=== PATIENT | female | born 1985 | race Caucasian/White ===

== ENCOUNTER 2017-10-15 12:32 | Observation (INO) ==
[2017-10-15 12:21] LABS: Basophils % 0.1 %; Bilirubin,Urine Negative (Negative); Blood,Urine Negative (Negative); Color,Urine Yellow (Yellow); Eosinophils # 0.1 K/mcL (0.0-0.6); Eosinophils % 1.3 %; Glucose,Urine (UA) Normal (Normal); Hemoglobin 10.9 g/dL (11.5-15.4); Immature Granulocytes % 1.1 % (0-4); Ketones,Urine Negative (Negative); Leukocyte Esterase,Urine Moderate (Negative); Lymphocytes # 1.3 K/mcL (0.6-4.6); Lymphocytes % 14.2 %; Mean Corpuscular Volume 90.9 fL (83.0-100.0); Mean Platelet Volume 11.1 fL (9.4-12.4); Monocytes # 0.8 K/mcL (0.0-1.3); Monocytes % 8.5 %; Neutrophils # 6.8 K/mcL (1.6-8.9); Nitrite,Urine Negative (Negative); Platelet Count 170 K/mcL (140-400); Protein,Urine Negative (Neg-Trace); Red Blood Count 3.63 M/mcL (3.82-4.97); Red Cell Distribution Width 15.3 % (11.5-14.5); Segmented Neutrophils % 74.8 %; Urobilinogen,Urine Normal (Normal)
[2017-10-15 12:31] LABS: Bacteria,Urine Moderate per hpf (None-Few); Hyaline Casts,Urine None Seen per lpf (None-Few); Squamous Epithelial Cell,Urine Many per lpf (None-Few); WBC,Urine 15-30 per hpf (0-3)
[2017-10-15 12:34] LABS: Clarity,Urine Clear (Clear)
[2017-10-15 12:41] LABS: Calcium Oxalate Crystals,Urine Present; RBC,Urine 0-3 per hpf (0-3)
[2017-10-15 12:52] LABS: Amphetamine Screen,Urine Negative ng/mL (Cutoff=1000); Barbiturate Screen,Urine Negative ng/mL (Cutoff=200); Benzodiazepines Screen,Urine Negative ng/mL (Cutoff=200); Cannabinoid Screen,Urine Negative ng/mL (Cutoff = 50); Cocaine Screen,Urine Negative ng/mL (Cutoff= 300); Opiate Screen,Urine Negative ng/mL (Cutoff=300); Phencyclidine Screen,Urine Negative ng/mL (Cutoff=25)
[2017-10-15 12:53] LABS: Alanine Aminotransferase 14 Units/L (7-52); Aspartate Amino Transferase 17 Units/L (13-39); BUN/Creatinine Ratio 15 (6-26); Blood Urea Nitrogen 8 mg/dL (6-20); Lactate Dehydrogenase 149 Units/L (140-271); eGFR For Non-African Americans > 60 (> 60)
--- NOTE | 2017-10-15 13:47 | OB/GYN Progress Note ---
Date of Encounter: 10/15/17 Time of Encounter: 13:44 - Assessment and Plan (1) 32 weeks gestation of Current Visit: Yes Status: Acute (2) Elevated blood pressure affecting in third trimester, antepartum Current Visit: Yes Status: Acute PIH labs negative, normotensive in labor and delivery. Discharged home with labor, PIH and when to return to triage precautions. Patient verbalizes understanding Subjective - Subjective Interval history: 32+2 presents to triage with complaints of "not feeling well". Patient states she has has felt off the last couple days. Took her blood pressure at work and it was 130s over 90s. To triage for PIH evaluation. Reports good movement, denies vaginal bleeding or leaking of fluid, headache, visual changes, right upper quadrant pain Antepartum ROS: movement normal, no loss of fluid, no vaginal bleeding, no contractions Objective - Vital Signs Vital Signs: Intake and Output 10/14/17 10/15/17 10/15/17 23:59 07:59 15:59 Other: Weight 96.7 kg Patient Weight 10/15/17 23:59 Weight 96.7 kg - Exam FHR: auscultation normal FHR comments: Baseline 135 Abdomen: Present: normal appearance, soft, gravid - Labs Labs: Abnormal lab results RBC 3.63 M/mcL (3.82-4.97) L 10/15/17 11:43 Hgb 10.9 g/dL (11.5-15.4) L 10/15/17 11:43 Hct 33.0 % (35.3-44.9) L 10/15/17 11:43 RDW 15.3 % (11.5-14.5) H 10/15/17 11:43 Creatinine 0.55 mg/dL (0.60-1.20) L 10/15/17 11:43 Ur Leukocyte Esterase Moderate (Negative) H 10/15/17 11:43 Urine Microscopic WBC 15-30 per hpf (0-3) H 10/15/17 11:43 Ur Squamous Epith Cells Many per lpf (None-Few) H 10/15/17 11:43 Urine Bacteria Moderate per hpf (None-Few) H 10/15/17 11:43 Ur Culture Indicated? NO. (NO) A 10/15/17 11:43
[2017-10-16 08:25] LABS: Protein/Creatinine Ratio,Urine 0.2 mg/mg (0.00-0.20)
== END 2017-10-15 14:00 | disposition home or self-care (01) ==
LOC: 1NENULAB
PROVIDERS: ADMIT Advanced Practice Midwife; ATTEND Advanced Practice Midwife

== ENCOUNTER 2017-11-25 05:13 | Inpatient (IN) ==
--- NOTE | 2017-11-24 23:47 | OB/GYN History & Physical ---
Date of Encounter: 11/24/17 Time of Encounter: 23:40 Assessment and Plan (1) 38 weeks gestation of Current visit: Yes Status: Acute Admit for repeat GBS negative Patient desires repeat (2) PROM (premature rupture of membranes) Current visit: Yes Status: Acute Qualifiers: PROM onset of labor timing: unspecified duration between rupture of membranes and onset of labor PROM gestational age: full term Qualified Code( s): O42.92 - Full-term premature rupture of membranes, unspecified as to length of time between rupture and onset of labor (3) History of pre-eclampsia in prior , currently Current visit: Yes Status: Acute (4) Gestational hypertension Current visit: Yes Status: Acute Qualifiers: Trimester: third trimester Qualified Code(s): O13.3 - Gestational [ -induced] hypertension without significant proteinuria, third trimester History of Present Illness Chief complaint: Leaking fluid HPI: Ms. Hendrickson is a 32 year old at 38 weeks 0 days that presents to labor and delivery triage with c/o vaginal leaking of fluid that began around 2200. She denies intercourse in the past 24-48 hours. She states she has had one previous after attempting to push. She is requesting a repeat . She has seen Dr Zarate for this . She does have a history of gestational hypertension that has been controlled with oral medication, a septate uterus, and a history of pre-eclampsia with a previous . Labs: GBS negative Blood type O+ Hep B negative HIV NR RPR neg Varicella immune Rubella immune Past Med Surg Social Fam HX - Past Medical History Medical history: non-contributory Psychiatric history: depression - Past Surgical History Surgical History: non-contributory, other Additional surgical history: T&A at appx 2 years of age - Social History Smoking Status: Never smoker Smokeless Tobacco Status: No Alcohol use: none Drug use: none - Family History Mother Hx Family Cardiac Disorders: Yes (high blood pressure) Hx Family Respiratory Disorders: No Hx Family Cancer: No Hx Family GI Disorders: No Hx Family Genitourinary Disorders: No Hx Family Endocrine Disorder: No Hx Family Musculoskeletal Disorders: No Hx Family Neuromuscular Disorders: No Hx Family Neurologic Disorders: No Hx Family HEENT Disorders: No Hx Family Autoimmune Disorders: No Hx Family Reproductive Disorders: No Hx Family Psychosocial Disorders: No Hx Family Medical Disorders: No Obstetrical History - Pregnancies : 3 Para: 1 Term: 1 : 0 Ab's: 1 Livin Medications and Allergies Aspirin [Lo-Dose Aspirin EC] 81 mg PO DAILY 06/11/17 [History] Zoloft 50 mg PO DAILY 06/11/17 [History] Ascorbic Acid [Vitamin C] 1,000 mg PO BID 10/15/17 [History] Ferrous Sulfate [Iron] 325 mg PO BID 10/15/17 [History] Vit Calc,Iron,Folic [ Vitamins] 1 each PO DAILY 10/15/17 [ History] 3 Allergy/AdvReac Type Severity Reaction Status Date / Time Amoxicillin Allergy Hives Verified 06/11/17 10:03 Exam - Constitutional Constitutional: well developed, well nourished, no acute distress, average body habitus - HEENT HEENT: Normocephaly, Mucus Membranes Moist - Lungs Respiratory exam: CTAB - Cardiovascular Cardiovascular exam: RRR, +S1, +S2 - Abdomen Abdomen: Present: bowel sounds normal, gravid, non tender - Extremities Extremities exam: normal capillary refill, normal inspection, radial pulses palpable and symmetrical - Vulva Vulva: bilateral: normal - Vagina Vagina: Present: normal moisture, discharge (SSE - white curd-like thick discharge adhered to vaginal fleming) - Cervix Dilation: 2 Effacement: 70 Station: -2 - Comments Comments: SSE - Pooling positive of clear fluid in posterior fornix, fluid observed coming from cervix, nitrazine equivocal Results All other labs normal. - VTE Reasons for not Prescribing Prophylaxis: Treatment not Indicated - Low risk for VTE
--- NOTE | 2017-11-25 00:26 | Anesthesia Evaluation PreOp ---
Date of Encounter: 11/25/17 Time of Encounter: 00:24 - Past History Planned Operation: Repeat Cardiac History: HTN (gestational; uncontrolled at time of assessment) Pulmonary History: Denies Any Significant HX [employer] PERSON History: Denies Any Significant HX Other Medical History: Denies Any Significant HX Anesthesia History: No Prior Anesthetic Complications (denies personal h/o of GA & NA complications; denies family h/o GA complications) : Yes Alcohol Use: none Drug use: none Medications and Allergies Aspirin [Lo-Dose Aspirin EC] 81 mg PO DAILY 06/11/17 [History] Zoloft 50 mg PO DAILY 06/11/17 [History] Ascorbic Acid [Vitamin C] 1,000 mg PO BID 10/15/17 [History] Ferrous Sulfate [Iron] 325 mg PO BID 10/15/17 [History] Vit Calc,Iron,Folic [ Vitamins] 1 each PO DAILY 10/15/17 [ History] 3 Allergy/AdvReac Type Severity Reaction Status Date / Time Amoxicillin Allergy Hives Verified 06/11/17 10:03 - Meds/Allergy Pre-op Review Medications Reviewed: Yes Allergies Reviewed: Yes Beta Blockers on Current Med List: No Anesthesia Exam 190/108, HR 68, RR 20 O2 Sat Height 1.63 m Height 1.63 m Weight 99.79 kg Weight 99.79 kg Weight 220 kg NPO (# of Hours): solids > 5hrs Pain Scale: 5 Pain Scale Used: Evaristo (Faces) - HEENT Pupil (Motor): Pupils equal Mallampati: II Teeth: Normal Oral Opening: Greater than 3 - [employer]IP [employer]LECT[employer] PERSON LOC: Oriented [employer]IP [employer]LECT[employer] PERSON Motor: Normal RUE, Normal LUE, Normal RLE, Normal LLE, Normal Face [employer]ERSON Sensory: Normal: RUE, LUE, RLE, LLE, Face - Cardiac Rhythm: Regular Murmur: None - Pulmonary Breath Sounds: bilateral Clear Respiratory Effort: Symmetrical Anesthesia Assess/Plan ASA Score: 2 Modified Parnell Scale for Level of Consciousness: Cooperative, oriented, and tranquil Anesthetic Plan: Regional Autologous Blood: No Monitoring Plan: Standard Monitors Recovery Plan: PACU
[2017-11-25 00:37] LABS: Basophils % 0.4 %; Eosinophils # 0.2 K/mcL (0.0-0.6); Eosinophils % 2.1 %; Hematocrit 35.6 % (35.3-44.9); Hemoglobin 11.9 g/dL (11.5-15.4); Immature Granulocytes % 1.6 % (0-4); Lymphocytes # 1.6 K/mcL (0.6-4.6); Lymphocytes % 15.6 %; Mean Corpuscular HGB Conc 33.4 g/dL (31.6-35.5); Mean Corpuscular Hemoglobin 30.4 pg (28.0-33.3); Mean Platelet Volume 12.7 fL (9.4-12.4); Monocytes % 9.6 %; Neutrophils # 7.3 K/mcL (1.6-8.9); Nucleated Red Blood Cells 0.4 /100 WBC (0); Platelet Count 123 K/mcL (140-400); Red Blood Count 3.91 M/mcL (3.82-4.97); Red Cell Distribution Width 14.8 % (11.5-14.5); Segmented Neutrophils % 70.7 %
[2017-11-25 00:48] LABS: Alanine Aminotransferase 21 Units/L (7-52); Aspartate Amino Transferase 24 Units/L (13-39); BUN/Creatinine Ratio 10 (6-26); Blood Urea Nitrogen 8 mg/dL (6-20); Lactate Dehydrogenase 185 Units/L (140-271); Uric Acid 6.1 mg/dL (2.3-7.6); eGFR For Non-African Americans > 60 (> 60)
--- NOTE | 2017-11-25 00:57 | OB/GYN Procedure Note ---
Section - Date of procedure: 11/25/17 Preop diagnosis: other (IUP at 38 1/7 wks, previous section x 1, spontaneous rupture membranes, gestational hypertension) Post-op diagnosis: same Procedure: repeat low transverse Surgeon: Zoran Villar Quantitated Blood Loss: 600 Was there an office support assistant present: No Anesthesiologist: Yuli Han Plant Technician: Carrillo Tucker Anesthesia Type: Spinal section complications: none Disposition: L&D Recovery Room Specimens: Placenta - (s) A Delivery Date: 11/25/17 Delivery Time: 01:42 Presentation: vertex Position: JEREMIAH Route of delivery: other (section) Gender: Male Viability: Viable Pounds: 9 Ounces: 10 Gram Weight: 4.375 kg at 1 minute: 8 at 5 minutes: 9 Shoulder Dystocia: not encountered Specimens collected: cord blood Placenta: spontaneous Cord: 3 umbilical vessels - Narrative Narrative: Patient is a 32-year-old 3 para 1011 at 38 and one sevenths weeks who presented with complaint of spontaneous rupture membranes approximately 10 PM patient states that she started having cramping and had spontaneous rupture of membranes at the same time upon arrival to labor and delivery patient was noted to be mallory was grossly ruptured and uncomfortable patient is a history of hypertension was on labetalol 100 mg twice a day to take her dose around 11: 00 if she is having some pain blood pressures are slightly elevated at this time she has a history of preeclampsia with one of the pregnancies. Because patient is a previous section and ruptured she does not want to do a trial of labor so section was offered. Procedure: Patient was taken to the operating room where spinal anesthesia was found be adequate. She was placed in the dorsal supine position prepped and draped in usual fashion. Timeout was then obtained. A Pfannenstiel incision was made with a scalpel and carried down to the underlying tissue to the fascia was identified. The fascia was nicked in midline extended laterally with Rangel scissors. The superior and inferior edges of the fascia grasped tented up and dissected off the rectus muscles. Rectus muscles were in midline parietal peritoneum was then identified tented up and entered sharply. This was extended superiorly and inferiorly with Metzenbaum scissors. Patient was noted to have omental adhesions to the peritoneum and bladder reflection this was taken down with sharp dissection. Bladder blade was inserted the vesicouterine peritoneum was identified tented up and entered sharply. This is extended laterally the bladder flap was created digitally. The lower uterine segment was incised with a scalpel and extended laterally with digital manipulation. Infant's head was brought out through the incision followed by the baby's cord was clamped and cut was handed off to the waiting pediatric team. Cord blood was then collected and placenta was delivered spontaneously 3 vessel cord and the uterus was exteriorized and cleaned of all clots and debris. The lower uterine segment was then closed using an 0 Vicryl in a running stitch by a 2 layer closure. Good hemostasis was noted uterus was returned to the abdomen the gutters were cleaned of all clots and debis then copiously irrigated with no active bleeding. The fascia was then closed using a #1 stratafix in a running stitch and the skin was closed using a 4-0 Vicryl in a subcuticular manner. All needles lap sponge counts were correct 3 a elsy dressing was then applied to the end of the case. She did receive preoperative antibiotics.
--- NOTE | 2017-11-25 01:40 | Anesthesia Procedures ---
Date of Encounter: 11/25/17 Time of Encounter: 01:12 Procedures: Anesthesia - Epidural/Spinal Patient ID/Chart reviewed: Yes Patient examined: Yes OB Eval: Gestational age: 38 weeks 1 day OB Eval: : 3 OB Eval: Hx Para: 1 OB Eval: Contractions: Non-stressed pattern Consent Obtained: Yes Supplemental Oxygen: None/Room Air Site Prep: Aseptic Technique, Sterile prep and drape, Povidone-Iodine 1% Patient position: upright Local Anesthetic: Lidocaine 1% Amount of Local Anesthetic used: 3 Interspace Used: L3-L4 Blood: No CSF: Yes Paresthesia: No Spinal Needle Gauge: 25 (3.5" pencan needle) Spinal Dose: see anesthesia record Procedure: successful on 1st pass; patient tolerated procedure well; VSS Vitals + FHT's: see anesthesia record
--- NOTE | 2017-11-25 02:48 | Anesthesia Evaluation Post Op ---
Date of Encounter: 11/25/17 Time of Encounter: 02:48 - Vital Signs Vital Signs: 114/91, HR 84, SpO2 98%, T98.4, RR 16
[~2017-11-25 05:13] MED LIST: *HR* FentaNYL (PF) 100 MCG/2 ML VIAL ONE; *HR* Morphine Sulfate/PF 10 MG/10 ML AMPUL ONE; *HR* Oxytocin 10 UNIT/ML VIAL IM ONE; *HR* Phenylephrine 10 MG/ML VIAL ONE; *HR* Promethazine 25 MG/ML VIAL IVP PRN; Bupivacaine/PF 0.75% in Dex 2 ML AMPUL INFILT ONE; CeFAZolin Syr 3,000MG/30 ML 3,000 MG/30 ML SYRINGE IVPB ONE; Famotidine 20 MG/2 ML VIAL IVP ONE; Lidocaine -MPF 2% 5 ML VIAL ONE; Metoclopramide 10 MG/2 ML VIAL IVP ONE; Naloxone 0.4 MG/ML INJ IVP PRN; Ondansetron 4 MG/2 ML VIAL IVP PRN; Oxytocin 20 units/ LR 1000 mL 20 UNIT/1,000 ML BAG IVC ONE; Oxytocin 20 units/ LR 1000 mL 20 UNIT/1,000 ML BAG IVC SCH; Ringers Solution, Lactated 1,000 ML IVC SCH; Ringers Solution, Lactated 1,000 ML ONE
[2017-11-25] MEDS ORDERED: Naloxone 0.4 MG/ML INJ IVP PRN (05:15)
[2017-11-25] MEDS ORDERED: Simethicone 80 MG TAB.CHEW PO PRN (05:15)
[2017-11-25] MEDS ORDERED: Metoclopramide 10 MG/2 ML VIAL IVP PRN (05:15)
[2017-11-25] MEDS ORDERED: Ondansetron 4 MG/2 ML VIAL IVP PRN (05:15)
[2017-11-25] MEDS ORDERED: *HR* OxyCODONE/APAP 10/325 TABLET PO PRN (05:15)
[2017-11-25] MEDS ORDERED: Sennosides 8.6 MG TABLET PO PRN (05:15)
[2017-11-25] MEDS ORDERED: *HR* HYDROmorphone (PF) 1 MG/ML SYRINGE IVP PRN (05:15)
[2017-11-25] MEDS ORDERED: *HR* OxyCODONE/APAP 5/325 TABLET PO PRN (05:15)
[2017-11-25] MEDS ORDERED: Oxytocin 20 units/ LR 1000 mL 20 UNIT/1,000 ML BAG IVC SCH (05:15)
[2017-11-25] MEDS ORDERED: Ringers Solution, Lactated 1,000 ML IVC SCH (05:15)
[2017-11-25 06:27] LABS: Basophils % 0.2 %; Eosinophils # 0.1 K/mcL (0.0-0.6); Eosinophils % 0.6 %; Hematocrit 32.3 % (35.3-44.9); Hemoglobin 10.9 g/dL (11.5-15.4); Immature Granulocytes % 0.9 % (0-4); Lymphocytes # 1.5 K/mcL (0.6-4.6); Lymphocytes % 9.4 %; Mean Corpuscular HGB Conc 33.7 g/dL (31.6-35.5); Mean Corpuscular Hemoglobin 30.5 pg (28.0-33.3); Mean Corpuscular Volume 90.5 fL (83.0-100.0); Mean Platelet Volume 12.4 fL (9.4-12.4); Monocytes # 1.1 K/mcL (0.0-1.3); Monocytes % 6.7 %; Neutrophils # 13.1 K/mcL (1.6-8.9); Platelet Count 129 K/mcL (140-400); Red Blood Count 3.57 M/mcL (3.82-4.97); Red Cell Distribution Width 14.6 % (11.5-14.5); Segmented Neutrophils % 82.2 %
[2017-11-25 06:42] LABS: Alanine Aminotransferase 19 Units/L (7-52); Aspartate Amino Transferase 27 Units/L (13-39); BUN/Creatinine Ratio 10 (6-26); Blood Urea Nitrogen 8 mg/dL (6-20); Lactate Dehydrogenase 229 Units/L (140-271); eGFR For Non-African Americans > 60 (> 60)
[2017-11-25] MEDS: Aspirin Enteric Coated 81 MG Tablet PO SCH (07:49)
[2017-11-25] MEDS: Prenatal Vit/FA 1 EACH TABLET PO SCH (07:49)
[2017-11-25] MEDS ORDERED: NON-FORMULARY MEDICATION 1 EACH EACH (Prenatal Vit Calc,Iron,Folic [Prenatal Vitamins] 1 E PO SCH (09:00)
[2017-11-25] MEDS: Ibuprofen 600 MG TABLET PO PRN ×2 (16:03→23:37)
[2017-11-26] MEDS: Aspirin Enteric Coated 81 MG Tablet PO SCH (08:16)
[2017-11-26] MEDS: Prenatal Vit/FA 1 EACH TABLET PO SCH (08:16)
[2017-11-26] MEDS: Ibuprofen 600 MG TABLET PO PRN (08:16)
[2017-11-26 08:17] VITALS: BP 132/92
--- NOTE | 2017-11-26 10:44 | Discharge Summary ---
Date of Encounter: 11/26/17 Time of Encounter: 10:41 - Discharge Diagnosis (1) Status post repeat low transverse section Priority: Primary Status: Acute Comments: Continue routine postop/ care discharge home today per patient request: Infant has already been discharged Instructions on DONAVON dressing discussed Patient to follow up with Dr. Villar in 2 weeks for incision check Patient to follow up with Dr. Zarate in 6 weeks for visit (2) Elevated blood pressure affecting in third trimester, antepartum Priority: Secondary Status: Acute Comments: Continue labetalol 100mg po BID Nurse visit in 1 week for BP check (3) Breast feeding status of mother Priority: Secondary Status: Acute Comments: support prn - Discharge Medications Prescriptions: OxyCODONE/APAP 5/325 [Percocet 5/325 MG] 1 each PO Q4HR PRN 5 Days #30 tablet PRN Reason: Moderate pain 4-6 Ibuprofen [Motrin] 600 mg PO Q6HR PRN #60 tablet PRN Reason: Cramping Docusate [Colace] 100 mg PO BID #30 capsule Home Medications: Aspirin [Lo-Dose Aspirin EC] 81 mg PO DAILY 06/11/17 [History] Zoloft 50 mg PO DAILY 06/11/17 [History] Ascorbic Acid [Vitamin C] 1,000 mg PO BID 10/15/17 [History] Ferrous Sulfate [Iron] 325 mg PO BID 10/15/17 [History] Vit Calc,Iron,Folic [ Vitamins] 1 each PO DAILY 10/15/17 [ History] Labetalol [Trandate] 100 mg PO BID 11/25/17 [History] Docusate [Colace] 100 mg PO BID #30 capsule 11/26/17 [Rx] Ibuprofen [Motrin] 600 mg PO Q6HR PRN #60 tablet 11/26/17 [Rx] OxyCODONE/APAP 5/325 [Percocet 5/325 MG] 1 each PO Q4HR PRN 5 Days #30 tablet [Rx] Allergies/Adverse Reactions: 3 Allergy/AdvReac Type Severity Reaction Status Date / Time Amoxicillin Allergy Hives Verified 06/11/17 10:03 Data Procedures and tests throughout hospitalization: Laboratory Tests 11/25/17 11/25/17 11/25/17 00:05 00:05 05:57 WBC 10.3 15.9 H D RBC 3.91 3.57 L Hgb 11.9 10.9 L Hct 35.6 32.3 L MCV 91.0 90.5 MCH 30.4 30.5 MCHC 33.4 33.7 RDW 14.8 H 14.6 H Plt Count 123 L 129 L MPV 12.7 H 12.4 Immature Gran % 1.6 0.9 Seg Neutrophils % 70.7 82.2 Lymphocytes % 15.6 9.4 Monocytes % 9.6 6.7 Eosinophils % 2.1 0.6 Basophils % 0.4 0.2 Neutrophils # 7.3 13.1 H Lymphocytes # 1.6 1.5 Monocytes # 1.0 1.1 Eosinophils # 0.2 0.1 Basophils # 0.0 0.0 Nucleated RBCs/100 WBC 0.4 H BUN 8 Creatinine 0.78 Est GFR ( Amer) > 60 Est GFR (Non-Af Amer) > 60 BUN/Creatinine Ratio 10 Uric Acid 6.1 AST 24 ALT 21 Lactate Dehydrogenase 185 11/25/17 05:57 WBC RBC Hgb Hct MCV MCH MCHC RDW Plt Count MPV Immature Gran % Seg Neutrophils % Lymphocytes % Monocytes % Eosinophils % Basophils % Neutrophils # Lymphocytes # Monocytes # Eosinophils # Basophils # Nucleated RBCs/100 WBC BUN 8 Creatinine 0.83 Est GFR ( Amer) > 60 Est GFR (Non-Af Amer) > 60 BUN/Creatinine Ratio 10 Uric Acid 6.0 AST 27 ALT 19 Lactate Dehydrogenase 229 Date of admission: 11/25/17 05:13 Primary care physician: Ruchi Smith Discharging clinician: Brenda Diaz Anticipated date of discharge: 11/26/17 - Patient Status Disposition: Home, Self-Care Condition: Good Functional capacity at discharge: independent ambulation - Discharge Instructions Follow Up With: Ruchi Smith MD [Primary Care Provider] - Zoran Villar DO [Partnered Physician] - - Diet and Activity Activity: increase activity as tolerated Diet: regular diet Hospital Course Procedures: [facility] report reviewed by MEGAN Prince Reason for admission: rupture of membranes Delivery: section (repeat) Episiotomy: none Laceration: none complications: none Discharge diagnosis: IUP at term delivered [place] baby: male (breast feeding) Time Attestation: Total time spent providing and/or coordinating discharge services: Time Spent: Less than 30 minutes - VTE Reasons for not Prescribing Prophylaxis: Treatment not Indicated - Low risk for VTE Documentation of Mechanical Device: Intermittent pneumatic compression device Exam - Constitutional Vitals: Temp Pulse Resp BP Pulse Ox 98 F 96 16 132/92 98 11/26/17 08:16 11/26/17 08:16 11/26/17 08:31 11/26/17 08:16 11/26/17 08:16 General appearance IM: A&O X 3, pleasant, answers questions appropriately - Respiratory Respiratory exam: Present: CTAB - Cardiovascular Cardiovascular exam IM: Present: RRR, +S1, +S2 - GI/Abdominal GI/Abdominal exam IM: normal bowel sounds - Uterine Tone: Firm Uterus Position: 2 Fingers Below Umbilicus, Midline - Extremities Exam Extremities exam IM: Present: full ROM, normal capillary refill, normal inspection - Neurological Exam Neurological exam: alert, oriented X3, reflexes normal
== END 2017-11-26 12:43 | disposition home or self-care (01) | DRG 788 ==
LOC: 1NENULAB → 1NENUOBS 05:16
PROVIDERS: ADMIT Advanced Practice Midwife; ATTEND Advanced Practice Midwife